=== PATIENT | female | born 1960 | race Caucasian/White ===

== ENCOUNTER 2019-11-29 13:48 | Emergency (ER) | payer OTHER ==
[2019-11-29 14:11] VITALS: BP 109/71; PULSE 85; RESP 18; TEMP 98.3
[2019-11-29] MEDS ORDERED: FLUORESCEIN STRIPS 1 MG STRIP LEFT EYE ONE (14:11)
[2019-11-29] MEDS ORDERED: PROPARACAINE 0.5% OPHTH DROPS 15 ML BTL LEFT EYE STA (14:11)
[2019-11-29] MEDS ORDERED: DIPH,PERTUS(ACELL)TETVAC-LF 0.5 ML VIAL IM ONE (14:27)
--- NOTE | 2019-11-29 14:30 | ED ---
General Adult HPI - General Chief complaint: Eye Problems Stated complaint: Eye issues Time Seen by Provider: 11/29/19 14:10 Source: patient, RN notes reviewed Mode of arrival: ambulatory Limitations: no limitations - History of Present Illness Initial comments: 59-year-old female presents to the emergency determine for chief complaint of left eye irritation. Patient states yesterday evening she noticed her contacts felt dry so remove them from her eyes. Patient states she woke up around 1:00 in the morning and had drainage from the left eye as well as irritation. States that she feels like it is scratched but does not remember scratching her eye. Patient has no other complaints at this time including shortness of breath, chest pain, abdominal pain, nausea or vomiting, headache, or visual changes. - Related Data Home Medications Medication Instructions Recorded Confirmed Acetaminophen Tab [Tylenol Tab] 650 mg PO Q4-6H PRN 05/10/15 05/16/15 Naproxen Sodium [Aleve] 220 mg PO Q12HR PRN 05/10/15 05/10/15 RX: Melatonin 3 mg PO HS PRN 05/10/15 05/16/15 Previous Rx's Medication Instructions Recorded RX: Ofloxacin 0.3% Ophth Soln 1 drops LEFT EYE DIRECTED #1 11/29/19 [Ocuflox Ophth Soln] bottle Allergies Allergy/AdvReac Type Severity Reaction Status Date / Time No Known Allergies Allergy Verified 11/29/19 14:06 Review of Systems ROS Statement: Those systems with pertinent positive or pertinent negative responses have been documented in the HPI. ROS Other: All systems not noted in ROS Statement are negative. Past Medical History Additional Past Medical History / Comment(s): PROBLEMS WITH TRIGGER THUMB LEFT HAND-HX OF CORTISONE INJECTIONS. History of Any Multi-Drug Resistant Organisms: None Reported Past Surgical History: No Surgical Hx Reported Additional Past Surgical History / Comment(s): COLONOSCOPY, Rt ankle surgery Past Anesthesia/Blood Transfusion Reactions: No Reported Reaction, Motion Sickness Past Psychological History: No Psychological Hx Reported Smoking Status: Never smoker Past Alcohol Use History: None Reported, Rare Past Drug Use History: None Reported - Past Family History Father Family Medical History: Cancer Additional Family Medical History / Comment(s): ESOPHAGEAL CA Mother Family Medical History: Cancer Additional Family Medical History / Comment(s): LUNG CA Brother(s) Family Medical History: Cancer Additional Family Medical History / Comment(s): (2) BROTHERS PROSTATE CA General Exam Limitations: no limitations General appearance: alert, in no apparent distress Head exam: Present: atraumatic, normocephalic, normal inspection Eye exam: Present: PERRL, EOMI, conjunctival injection, other (The eye was anesthetized with proparacaine which completely alleviated patient's symptoms. It was then stained with fluorescein stain and visualize with the Wood's lamp. There is a small pinpoint defect at 6:00 on the cornea that looks cloudy in nature. No other abrasions. Negative Lupe sign.). Absent: scleral icterus, periorbital swelling Expanded Eyelids: Normal Inspection: Bilateral Pupils: Regular, Round: Bilateral Sclera/Conjunctival: Normal Inspection: Right, Injection: Left Visual acuity (R) = 20/: 40 Visual acuity (L) = 20/: 40 With correction: Yes ENT exam: Present: normal exam, normal oropharynx, mucous membranes moist, normal external ear exam Neck exam: Present: normal inspection, full ROM. Absent: tenderness, meningismus, lymphadenopathy Respiratory exam: Present: normal lung sounds bilaterally. Absent: respiratory distress, wheezes, rales, rhonchi, stridor Cardiovascular Exam: Present: regular rate, normal rhythm, normal heart sounds. Absent: systolic murmur, diastolic murmur, rubs, gallop, clicks Neurological exam: Present: alert Course Vital Signs 11/29/19 14:06 Temperature 98.3 F Pulse Rate 85 Respiratory 18 Rate Blood Pressure 109/71 O2 Sat by Pulse 100 Oximetry Medical Decision Making - Medical Decision Making 59-year-old female presents for left eye irritation. This happened after patient took out her contacts. Patient states she has had these contacts for a few weeks. States that her eye feels irritated and is running. Patient denies any visual changes. Visual acuity 20/40 OD, OS, OU. The eye was numbed with proparacaine which completely alleviated symptoms initially. It was then stained with foreseen stain and visualize with the Wood's sign. There is a small pinpoint defect noted in the cornea at about 6:00. Given use of contacts there is concern for corneal ulceration. I consulted Dr. Wu who recommended starting patient on ofloxacin drops and having her see him tomorrow. Patient is updated on his information. She was given a Floxin drops here in the emergency department and they were also e-prescribed. She will return here if she has any worsening symptoms. Disposition Clinical Impression: Corneal ulcer of left eye Disposition: HOME SELF-CARE Condition: Good Instructions (If sedation given, give patient instructions): Corneal Ulcer (ED) Additional Instructions: Please use antibiotic drops as directed. Do not wear contacts. Call Dr. Wu for an appointment first thing in the morning. He wants to see you tomorrow. Make sure to tell office staff this. Return here to the emergency department if you have any worsening symptoms. Prescriptions: RX: Ofloxacin 0.3% Ophth Soln [Ocuflox Ophth Soln] 1 drops LEFT EYE DIRECTED #1 bottle Is patient prescribed a controlled substance at d/c from ED?: No Referrals: Rinku Powers DO [Primary Care Provider] - 1-2 days Almas Wu MD [STAFF PHYSICIAN] - 1-2 days Time of Disposition: 15:08
[2019-11-29] MEDS: OFLOXACIN 0.3% OPHTH DROPS 5 ML BOTTLE LEFT EYE STA ×2 (14:59→15:04)
== END 2019-11-29 15:04 | disposition home or self-care (01) ==
LOC: EC 13:48
DX: H16.002 Unspecified corneal ulcer, left eye (principal); Z23 Encounter for immunization
CPT/HCPCS: 90471; 90715; 99283

== ENCOUNTER 2019-11-29 20:26 | Emergency (ER) | payer OTHER ==
[2019-11-29] MEDS ORDERED: PROPARACAINE 0.5% OPHTH DROPS 15 ML BTL LEFT EYE STA (20:47)
--- NOTE | 2019-11-29 21:11 | ED ---
General Adult HPI - General Chief complaint: Eye Problems Stated complaint: Eye issues Source: patient, RN notes reviewed Mode of arrival: ambulatory Limitations: no limitations - History of Present Illness Initial comments: 59-year-old female presents to the emergency department for chief complaint of left eye irritation. Patient was seen here earlier today and diagnosed with possible corneal ulcer. The irritation started last night. Patient started on ofloxacin drops today. I did previously speak with Dr. Wu who will see patient tomorrow morning. However patient states that the irritation is worsening and she is concerned that the hospital ulceration may be getting bigger. Therefore she wanted to be reevaluated. She denies visual changes. States that she feels like her eyelid is swelling.Patient has no other complaints at this time including shortness of breath, chest pain, abdominal pain, nausea or vomiting, headache, or visual changes. - Related Data Home Medications Medication Instructions Recorded Confirmed Acetaminophen Tab [Tylenol Tab] 650 mg PO Q4-6H PRN 05/10/15 05/16/15 Melatonin 3 mg PO HS PRN 05/10/15 05/16/15 Naproxen Sodium [Aleve] 220 mg PO Q12HR PRN 05/10/15 05/10/15 Previous Rx's Medication Instructions Recorded Ofloxacin 0.3% Ophth Soln [Ocuflox 1 drops LEFT EYE DIRECTED #1 11/29/19 Ophth Soln] bottle Allergies Allergy/AdvReac Type Severity Reaction Status Date / Time No Known Allergies Allergy Verified 11/29/19 20:28 Review of Systems ROS Statement: Those systems with pertinent positive or pertinent negative responses have been documented in the HPI. ROS Other: All systems not noted in ROS Statement are negative. Past Medical History Additional Past Medical History / Comment(s): PROBLEMS WITH TRIGGER THUMB LEFT HAND-HX OF CORTISONE INJECTIONS. History of Any Multi-Drug Resistant Organisms: None Reported Past Surgical History: No Surgical Hx Reported Additional Past Surgical History / Comment(s): COLONOSCOPY, Rt ankle surgery Past Anesthesia/Blood Transfusion Reactions: No Reported Reaction, Motion Sickness Past Psychological History: No Psychological Hx Reported Smoking Status: Never smoker Past Alcohol Use History: None Reported, Rare Past Drug Use History: None Reported - Past Family History Father Family Medical History: Cancer Additional Family Medical History / Comment(s): ESOPHAGEAL CA Mother Family Medical History: Cancer Additional Family Medical History / Comment(s): LUNG CA Brother(s) Family Medical History: Cancer Additional Family Medical History / Comment(s): (2) BROTHERS PROSTATE CA General Exam Limitations: no limitations General appearance: alert, in no apparent distress Head exam: Present: atraumatic, normocephalic, normal inspection Eye exam: Present: normal appearance, PERRL, EOMI, conjunctival injection (Minimal left conjunctival injection), other (The eye was numbed with proparacaine which completely alleviated pain. It was then stained with fluorescein stain and projectile was lamp which again reveals a small pinpoint defect at 6:00 in the left cornea. Negative Lupe sign. No evidence for foreign body.). Absent: scleral icterus, periorbital swelling Expanded Eyelids: Normal Inspection: Bilateral Pupils: Regular, Round: Bilateral Sclera/Conjunctival: Normal Inspection: Right, Injection: Left Visual acuity (R) = 20/: 30 Visual acuity (L) = 20/: 40 With correction: Yes IOP (R) in mmH IOP (L) in mmH IOP measured with: [employer] ENT exam: Present: normal exam, mucous membranes moist Neck exam: Present: normal inspection, full ROM. Absent: tenderness, meningismus, lymphadenopathy Respiratory exam: Present: normal lung sounds bilaterally. Absent: respiratory distress, wheezes, rales, rhonchi, stridor Cardiovascular Exam: Present: regular rate, normal rhythm, normal heart sounds. Absent: systolic murmur, diastolic murmur, rubs, gallop, clicks Course Vital Signs 11/29/19 20:29 Temperature 98.2 F Pulse Rate 88 Respiratory 16 Rate Blood Pressure 142/91 O2 Sat by Pulse 99 Oximetry Medical Decision Making - Medical Decision Making Patient was again examined using Wood's lamp and fluorescein stain. This reveals a small pinpoint corneal ulcer at 6:00 in the left cornea. Appears the same as earlier today. Intraocular pressures were obtained which were normal. Patient was given proparacaine here in the emergency department which did help with her symptoms. She was not sent home with this. She will call back in the morning and return if she has any worsening symptoms.I discussed this case with attending Dr. Alcantara who agrees with this assessment and treatment plan. Disposition Clinical Impression: Corneal ulcer of left eye Disposition: HOME SELF-CARE Condition: Good Instructions (If sedation given, give patient instructions): Corneal Ulcer (ED) Additional Instructions: Continue antibiotic drops as previously directed. Please follow-up with primary care in 1-2 days. Return to the emergency department if you have any worsening symptoms. Is patient prescribed a controlled substance at d/c from ED?: No Referrals: Rinku Powers DO [Primary Care Provider] - 1-2 days Time of Disposition: 21:43
[2019-11-29 21:54] VITALS: BP 125/83; PULSE 80; RESP 18; TEMP 98
== END 2019-11-29 21:59 | disposition home or self-care (01) ==
LOC: EC 20:26
DX: H16.002 Unspecified corneal ulcer, left eye (principal)
CPT/HCPCS: 99283

== ENCOUNTER → 2022-09-11 | Outpatient (CLI) | payer OTHER ==
--- NOTE | 2022-09-11 14:48 | MR ---
EXAMINATION TYPE: MR hip RT wo con DATE OF EXAM: 09/11/2022 COMPARISON: None. HISTORY: Rt hip pain, unilateral osteoarthritis Standard multiplanar, multisequence MRI departmental protocol Multiplanar, multisequence images of the pelvis were acquired without contrast. Imaging of the pelvis focusing on right hip was performed.. FINDINGS: Moderate superior joint space loss of both hips is identified. No significant spurring is s een. No subchondral cystic changes noted. The femoral head shape are maintained bilaterally. There ar e small symmetric hip joint effusions presumed physiologic. No abnormal T2 signal or edema seen. No s erpiginous low T1 signal or stress fracture is noted. Increased signal at greater trochanter level bi laterally likely reflects tendinosis of the distal gluteus medius tendon insertion. Findings best agata reciated on coronal image 11 for reference. No groin hernia or adenopathy is seen. No suspicious small or large bowel dilatation. Retroverted uterus projects to left of midline. Urinar y bladder appears within normal limits. 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
== END | disposition home or self-care (01) ==
LOC: RADMRIMAIN 13:33
PROVIDERS: ATTEND Orthopaedic Surgery
DX: M16.0 Bilateral primary osteoarthritis of hip (principal)